=== PATIENT | female | born 1985 | race Two or more races ===

== ENCOUNTER 2017-06-01 23:17 | Emergency (ER) | payer OTHER ==
[~2017-06-01] VITALS: Ht 175.3 cm; Wt 142.9 kg
[2017-06-02] MEDS ORDERED: KETO10TA2 PO (07:43)
== END 2017-06-02 08:47 | disposition home or self-care (01) ==
LOC: ER 23:17
DX: R10.2 Pelvic and perineal pain (principal)

== ENCOUNTER 2019-01-28 09:25 | Emergency (ER) | payer OTHER ==
[~2019-01-28] VITALS: Ht 175.3 cm; Wt 140.6 kg
[~2019-01-28 09:25] MED LIST: KETO10TA2 PO
== END 2019-01-28 13:10 | disposition home or self-care (01) ==
LOC: ER 09:25
DX: N39.0 Urinary tract infection, site not specified (principal); R30.0 Dysuria; M54.5 Low back pain; R10.2 Pelvic and perineal pain

== ENCOUNTER 2019-02-26 21:32 | Emergency (ER) | payer OTHER ==
[~2019-02-26] VITALS: Ht 175.3 cm; Wt 140.6 kg
== END 2019-02-26 23:01 | disposition home or self-care (01) ==
LOC: ER 21:32
DX: M54.5 Low back pain (principal)

== ENCOUNTER 2019-06-20 10:05 | Emergency (ER) | payer OTHER ==
[~2019-06-20] VITALS: Ht 175.3 cm; Wt 149.7 kg
[2019-06-20] MEDS ORDERED: MUCINEX1200 MG PO (11:25)
[2019-06-20] MEDS ORDERED: PROMETH-CODEIN 65 ML PO (11:25)
[2019-06-20] MEDS ORDERED: ZITHROMAX500 MG PO (11:25)
== END 2019-06-20 11:33 | disposition home or self-care (01) ==
LOC: ER 10:05
DX: R05 Cough (principal)

== ENCOUNTER 2020-02-01 14:40 | Emergency (ER) | payer OTHER ==
[~2020-02-01] VITALS: Ht 175.3 cm; Wt 160.6 kg
[~2020-02-01 14:40] MED LIST changes: +MUCINEX1200 MG PO; +PROMETH-CODEIN 65 ML PO; +ZITHROMAX500 MG PO
== END 2020-02-01 17:59 | disposition home or self-care (01) ==
LOC: ER 14:40
DX: R60.9 Edema, unspecified (principal); T24.201S Burn of second degree of unspecified site of right lower limb, except ankle and foot, sequela; T24.20 Burn of second degree of unspecified site of lower limb, except ankle and foot; X08.8XXS Exposure to other specified smoke, fire and flames, sequela; Z20.828 Contact with and (suspected) exposure to other viral communicable diseases